=== PATIENT | female | born 1965 | race Caucasian/White ===

== ENCOUNTER 2019-04-21 20:07 | Emergency (ER) | payer BC ==
[~2019-04-21] VITALS: Ht 157.5 cm; Wt 66.7 kg
[2019-04-21 20:11] VITALS: BP_SYST 133
--- NOTE | 2019-04-21 20:48 | NUR ---
Patient triaged and placed in waiting room. VSS and patient appears in no acute distress at this time. Accompanied by SON, awaiting available bed, and MD notified of need for MSE.
--- NOTE | 2019-04-21 23:58 | NUR ---
Patient to ER chair for evaluation. Side rails up.
--- NOTE | 2019-04-21 23:59 | NUR ---
Patient brought in by self. Reports playing basketball at home when basketball court fell and hit her on top of patient's head. Patient denies loss of consciousness, Denies any nausea, vomiting or diarrhea. Pain /10. Reports taking 3 advil tablets prior to arrival. 4 cm laceration noted to top of left head. No other complaints/injuries per patient or as noted. Will continue to monitor.
--- NOTE | 2019-04-22 00:10 | NUR ---
ER Dr. Hurtado at bedside examining patient.
[2019-04-22] MEDS ORDERED: LIDOCAINE 1% 10 MG/ML, 20 ML MDV INJ ONE (00:30)
--- NOTE | 2019-04-22 00:35 | NUR ---
Patient has a 4 cm laceration to left head Dr. Hurtado applied 8 amanda using sterile technique. Edges well approximated. Site cleansed with normal saline and betadine. No bleeding noted. Pt tolerated well.
[2019-04-22] MEDS ORDERED: DIPH-TET-PERTUS Vaccine 0.5 ML VIAL (ADACEL) I.M. ONE (00:45)
[2019-04-22 00:56] VITALS: BP_SYST 124
--- NOTE | 2019-04-22 00:56 | NUR ---
Patient given written and verbal discharge instructions and verbalizes understanding. ER MD Dr. Hurtado discussed with patient the results and treatment provided. Patient in stable condition. ID arm band removed. No Rx given. Patient educated on pain management and to follow up with PMD. Pain Scale 0/10. Opportunity for questions provided and answered. Medication side effect fact sheet provided.
== END 2019-04-22 00:56 | disposition home or self-care (01) ==
LOC: SED 20:07
DX: S01.01XA Laceration without foreign body of scalp, initial encounter (principal); Z88.8 Allergy status to other drugs, medicaments and biological substances; W31.89XA Contact with other specified machinery, initial encounter; Y93.67 Activity, basketball; Y92.89 Other specified places as the place of occurrence of the external cause; Y99.8 Other external cause status
CPT/HCPCS: 12013; 70450; 90471; 90715; 99284; J2001